=== PATIENT | female | born 1960 | race Caucasian/White ===

== ENCOUNTER 2016-05-08 21:13 | Observation (INO) | payer BC ==
[~2016-05-08] VITALS: Ht 160 cm; Wt 98.1 kg
[~2016-05-08 21:13] MED LIST: ZESTRIL10 MG PO
[2016-05-08 21:47] LABS: HEMATOCRIT 44.9 % (36.0-46.0); MCH 30.2 PG (29.0-34.0); MCHC 34.5 G/DL (30.0-36.0); MCV 87.5 FL (83-99); MEAN PLAT.VOLUME 10.2 uM^3 (9.5-12.4); PLATELET COUNT 196 K/uL (156-360); RBC DIS.WIDTH-CV 11.5 % (11.8-14.6); RBC DIS.WIDTH-SD 37.3 % (39-53); RED BLOOD COUNT 5.13 M/uL (3.80-5.20); WHITE BLOOD COUNT 5.5 K/uL (4.1-10.2)
[2016-05-08 21:59] LABS: CHLORIDE 101 mEq/L (99-109); POTASSIUM 3.4 mEq/L (3.7-5.4); SODIUM 138 mEq/L (136-147)
[2016-05-08 22:01] LABS: GLUCOSE 120 mg/dL (70-99)
[2016-05-08 22:02] LABS: ANION GAP 15 MEQ/L (2-14); D-DIMER ELISA 0.77 mg/L FEU (< 0.57)
[2016-05-08 22:05] LABS: GFR ESTIMATE (CALCULATED) > 59 mL/min/
[2016-05-08 22:06] LABS: UREA NITROGEN (BUN) 12 mg/dL (9-23)
[2016-05-08 22:09] LABS: TROP-I INTERPRETATION NEGATIVE; TROPONIN-I < 0.01 ng/mL (0.0-0.30)
[2016-05-09] MEDS ORDERED: OMEPRAZOLE20 MG PO (00:34)
[2016-05-09] MEDS ORDERED: NAPROXEN500 MG PO (00:35)
[2016-05-09] MEDS ORDERED: LOSARTAN POTASS50 MG PO (00:35)
[2016-05-09] MEDS ORDERED: KLOR-CON M2020 MEQ PO (00:35)
[2016-05-09 03:18] LABS: INTER. NORMALIZED RATIO 1.1; PROTHROMBIN TIME 10.7 (9.2-11.2)
[2016-05-09 10:43] LABS: HEMATOCRIT 41.7 % (36.0-46.0); MCH 30.4 PG (29.0-34.0); MCHC 34.3 G/DL (30.0-36.0); MCV 88.7 FL (83-99); MEAN PLAT.VOLUME 10.5 uM^3 (9.5-12.4); PLATELET COUNT 212 K/uL (156-360); RBC DIS.WIDTH-CV 11.8 % (11.8-14.6); WHITE BLOOD COUNT 6.7 K/uL (4.1-10.2)
[2016-05-09 10:54] LABS: CHLORIDE 104 mEq/L (99-109); POTASSIUM 3.9 mEq/L (3.7-5.4); SODIUM 139 mEq/L (136-147)
[2016-05-09 10:56] LABS: GLUCOSE 180 mg/dL (70-99)
[2016-05-09 10:58] LABS: ANION GAP 14 MEQ/L (2-14); TOTAL BILIRUBIN 0.3 mg/dL (0.0-1.0)
[2016-05-09 11:00] LABS: ALKALINE PHOSPHATASE 74 IU/L (3-129); GFR ESTIMATE (CALCULATED) > 59 mL/min/
[2016-05-09 11:01] LABS: UREA NITROGEN (BUN) 15 mg/dL (9-23)
[2016-05-09] MEDS ORDERED: DILTIAZEM 24HR180 MG PO (14:50)
[2016-05-09] MEDS ORDERED: ELIQUIS5 MG PO (14:50)
[2016-05-09] MEDS ORDERED: CARDIZEM60 MG PO (14:50)
[2016-05-09 15:54] VITALS: BP 150/87
== END 2016-05-09 16:02 | disposition home or self-care (01) ==
LOC: EME → EDBD 21:13 → EDOF 05-09 02:04
PROVIDERS: Emergency Medicine; Internal Medicine
DX: I48.0 Paroxysmal atrial fibrillation (principal); I47.1 Supraventricular tachycardia; E87.6 Hypokalemia; I10 Essential (primary) hypertension; K21.9 Gastro-esophageal reflux disease without esophagitis; F17.200 Nicotine dependence, unspecified, uncomplicated; J43.9 Emphysema, unspecified; I70.1 Atherosclerosis of renal artery; N28.1 Cyst of kidney, acquired
CPT/HCPCS: 71010; 71275; 80048; 80053; 84443; 84484; 85027; 85379; 85610; 85730; 93005; 99281; 99285; G0378; J0153; J1200; J2930